=== PATIENT | female | born 1955 | race Caucasian/White ===

== ENCOUNTER 2022-03-17 09:06 | Emergency (ER) | payer MEDICARE, SELFPAY ==
--- NOTE | ~2022-03-17 | XR_ITS ---
EXAMINATION: XR thoracic spine 3V DATE: 03/17/2022 10:47 INDICATION: Back pain. Fall. TECHNIQUE: 3 views of thoracic spine were obtained. COMPARISON: None. FINDINGS: There is 12 degrees dextroscoliosis of thoracic spine. There is kyphosis of thoracic spine. Vertebral body heights are normal. There is mildly decreased disc height at multiple levels in upper thoracic spine. There are bridging endplate osteophytes at multiple levels in the spine, consistent with diffuse idiopathic skeletal hyperostosis (DISH). IMPRESSION: 1. Mild thoracic spondylosis. 2. Thoracic dextroscoliosis and kyphosis. 3. DISH. Reviewed, dictated and finalized at location A. END OPERATOR
--- NOTE | ~2022-03-17 | XR_ITS ---
EXAMINATION: XR cervical spine 4-5V DATE: 03/17/2022 10:47 INDICATION: Neck pain. Fall. TECHNIQUE: 5 views of cervical spine were obtained. COMPARISON: None. FINDINGS: There is 6 degrees levocurvature of cervical spine. Vertebral body heights and intervertebr al disc heights are normal. There are endplate osteophytes at multiple levels including bulky anterio r osteophytes at C3-C4. The facet joints are unremarkable. No central canal stenosis or prevertebral soft tissue swelling. IMPRESSION: 1. Mild cervical spondylosis. Reviewed, dictated and finalized at location A. EY RESEARCH TEACHER
--- NOTE | ~2022-03-17 | XR_ITS ---
EXAMINATION: XR ankle RT min 3V DATE: 03/17/2022 10:47 INDICATION: Right ankle pain. Fall. TECHNIQUE: 4 views of right ankle were obtained. COMPARISON: None. FINDINGS: There is an oblique fracture of distal fibula with medial aspect of the fracture line at th e level of the tibial plafond. The distal fracture fragment demonstrates 2 mm posterolateral displace ment. There is an osteochondral lesion of medial talar dome. There are enthesophytes at the posterior and plantar aspects of calcaneal tuberosity. Ankle soft tissue swelling is noted. IMPRESSION: 1. Oblique fracture of distal fibula. 2. Osteochondral lesion of medial talar dome. Reviewed, dictated and finalized at location A. S OR BARGES LOADER
[2022-03-17 09:19] VITALS: BP 156/70; PULSE 64; RESP 18; TEMP 36.4; O2SAT 100
--- NOTE | 2022-03-17 09:44 | ED.GENADULT ---
HPI - General Adult General Chief complaint: Unspecified Stated complaint: right ankle/back pain Time Seen by Provider: 03/17/22 09:44 Source: patient Mode of arrival: ambulatory Limitations: no limitations History of Present Illness HPI narrative: 66-year-old female patient presents to the [facility] with complaints of right ankle and back pain after slipping down 3 stairs this morning. Patient denies hitting her head or loss of consciousness. Patient states she had socks on and states she was taking the dog outside and slipped down 3 tile stairs. Patient complaining of right ankle pain and some mid back pain. Patient states she does have a little bit of neck pain but mostly on the lateral side of the neck not center. Patient denies any numbness or tingling down the bilateral legs or arms. Denies any loss of bowel or bladder control Related Data Home Medications Medication Instructions Recorded Confirmed amlodipine 5 mg tablet mg 03/17/22 ezetimibe 10 mg tablet mg 03/17/22 fenofibrate 54 mg tablet mg 03/17/22 hydrochlorothiazide 50 mg tablet mg 03/17/22 levothyroxine 175 mcg tablet mcg 03/17/22 metoprolol succinate 50 mg mg PO 03/17/22 tablet,extended release 24 hr Allergies Allergy/AdvReac Type Severity Reaction Status Date / Time No Known Allergies Allergy Verified 03/17/22 10:14 Review of Systems Review of Systems: CONSTITUTIONAL: Denies fever, chills, or sweats. EYES: Denies visual changes, redness, or discharge. ENT: Denies rhinorrhea, congestion, sore throat, or otalgia. CARDIOVASCULAR: Denies chest pain, palpitations, or edema. RESPIRATORY: Denies cough or dyspnea. GASTROINTESTINAL: Denies abdominal pain, nausea, vomiting, or diarrhea. GENITOURINARY: Denies dysuria or hematuria. SKIN: Denies rash or itching. MUSCULOSKELETAL: Denies back pain, joint pain, or myalgia. Positive right ankle pain and mid back pain status post fall NEUROLOGIC: Denies headache, numbness, or weakness. PSYCHIATRIC: Denies anxiety or depression. PMFSH Comments At the time of my signature I agree with nursing past medical history, surgical, social, and family history. There is no relevant family history pertinent to the presenting complaint. Exam Narrative: GENERAL: Well-appearing, well-nourished, and in no acute distress. HEAD: Normocephalic, atraumatic. EYES: PERRLA and EOMI. ENT: Nares clear, no rhinorrhea or epistaxis. Mucous membranes moist. NECK: Supple. No lymphadenopathy CHEST: Clear to auscultation. No respiratory distress. HEART: Regular rate and rhythm. No murmur heard. Normal peripheral pulses. ABDOMEN: Soft, nontender, nondistended, normal active bowel sounds. EXTREMITIES: Patient is able to bear weight and ambulate with pain to right ankle. The R ankle is with obvious asymmetry when compared to the L ankle. Patient has limited flex/extend, patient able to invert/talat. No obvious surface trauma, ecchymosis, positive soft tissue swelling to the right ankle. Bony tenderness to palpation over the right lateral malleolus. Anterior talofibular ligament, posterior talofibular ligament, calcaneofibular ligament nontender and without swelling. No tenderness or deformity of the midfoot or over the proximal fifth metatarsal. Good DP and posterior tibial pulses and sensation to light touch normal. Talar tilt test is negative for ligament laxity to valgus or vargus stress. Negative anterior draw. Peroneal nerve is intact with strong eversion and plantar flexion. SKIN: Warm, dry, no rash. NEURO: No focal deficits. Alert and oriented x3. Course Course Level of Care: Express Care Visit Vital Signs Vital signs: Vital Signs Temperature 36.4 C L 03/17/22 09:19 Pulse Rate 64 03/17/22 09:19 Respiratory Rate 18 03/17/22 09:19 Blood Pressure 156/70 H 03/17/22 09:19 Pulse Oximetry 100 03/17/22 09:19 Oxygen Delivery Room Air 03/17/22 09:19 Temperature 36.4 C L 03/17/22 09:19 Pulse Rate 64
== END 2022-03-17 11:40 | disposition home or self-care (01) ==
PROVIDERS: Emergency Provider Nurse Practitioner Family; PCP Family Medicine
DX: S82.831A Other fracture of upper and lower end of right fibula, initial encounter for closed fracture (principal); W10.9XXA Fall (on) (from) unspecified stairs and steps, initial encounter; M54.2 Cervicalgia; M54.6 Pain in thoracic spine; E78.00 Pure hypercholesterolemia, unspecified; I10 Essential (primary) hypertension; E03.9 Hypothyroidism, unspecified
CPT/HCPCS: 29515; 72050; 72072; 73610; 99204; G0463

== ENCOUNTER 2022-05-02 12:45 | Outpatient (CLI) | payer MEDICARE, SELFPAY ==
--- NOTE | ~2022-05-02 | XR_ITS ---
EXAM: XR ankle RT min 3V DATE: 05/02/2022 13:12 HISTORY: S82.839A FOLLOW UP FRACTURE ON 03/17/22 . COMPARISON: 03/17/2022. FINDINGS: Decreased mineralization. Early evolving healing changes in the distal right fibular fract ure, with minimal residual displacement. No acute fracture or dislocation. No lytic or blastic lesion . Stable appearing medial talar osteochondral lesion. Mild degenerative changes in the tibiotalar jack nt. Achilles and plantar enthesopathy. No erosion or periosteal change. Soft tissues within normal li mits. IMPRESSION: Healing changes noted distal right fibular fracture. Reviewed, dictated and finalized at location K. ULAR TECHNICIAN
== END 2022-05-02 12:46 | disposition home or self-care (01) ==
PROVIDERS: Visit Provider Orthopaedic Surgery
DX: S82.831D Other fracture of upper and lower end of right fibula, subsequent encounter for closed fracture with routine healing (principal); X58.XXXD Exposure to other specified factors, subsequent encounter
CPT/HCPCS: 73610

== ENCOUNTER 2022-07-28 14:13 | Emergency (ER) | payer MEDICARE, SELFPAY ==
--- NOTE | ~2022-07-28 | XR_ITS ---
EXAM: XR knee LT min 4V DATE: 07/28/2022 14:41 HISTORY: TWISTED KNEE, SWELLING AND PAIN . COMPARISON: None available. FINDINGS: Decreased mineralization. No fracture or dislocation. No lytic or blastic lesion. Mild ost eoarthritis. Quadriceps enthesopathy. No erosion or periosteal change. Soft tissues within normal gomes its. IMPRESSION: No acute osseous finding in the left knee. Reviewed, dictated and finalized at location K.
[2022-07-28 14:21] VITALS: BP 160/71; PULSE 64; RESP 20; TEMP 36.6; O2SAT 99
--- NOTE | 2022-07-28 14:21 | ED.LOWEXIN ---
HPI - Extremity Injury (Lower) General Chief Complaint: Extremity Injury, Lower Stated Complaint: left knee injury Time Seen by Provider: 07/28/22 14:21 Source: patient Mode of arrival: ambulatory Limitations: no limitations History of Present Illness HPI Narrative: 67 y/o female presented for c/o left knee pain after injury 2 or 3 days ago. States she twisted the knee when she stepped into a hole while walking her dog. Denies falling. Reports pain gets up to 10/10, crying on her way to clinic. Taking ibuprofen and Tylenol with out change. Using andreas wrap and cane. Pain worse when walking. Cannot tolerate touching the lateral aspect of the knee, also pain with straightening the knee. Denies numbness, tingling, or weakness of the extremity. Was seen at [facility] and was told D-dimer was negative. Related Data Home Medications Medication Instructions Recorded Confirmed amlodipine 5 mg tablet mg 03/17/22 05/24/22 ezetimibe 10 mg tablet mg 03/17/22 05/24/22 fenofibrate 54 mg tablet mg 03/17/22 05/24/22 hydrochlorothiazide 50 mg tablet mg 03/17/22 05/24/22 levothyroxine 175 mcg tablet mcg 03/17/22 05/24/22 metoprolol succinate 50 mg mg PO 03/17/22 05/24/22 tablet,extended release 24 hr Allergies Allergy/AdvReac Type Severity Reaction Status Date / Time bee venom protein (honey bee) Allergy Unknown Unknown Verified 07/28/22 14:22 Review of Systems Review of Systems: CONSTITUTIONAL: Denies body aches, fever, chills EYES: Denies visual changes ENT: Denies rhinorrhea, congestion CARDIOVASCULAR: Denies chest pain, palpitations, or edema. RESPIRATORY: Denies cough or dyspnea. SKIN: Denies rash, itching, or wounds. MUSCULOSKELETAL: Reports left knee pain NEUROLOGIC: Denies headache, numbness, tingling, or weakness. All systems reviewed & are unremarkable except as noted in HPI and below PMFSH Past Medical History Medical History History of cardiac disorder (~2008) Stent Placement History of stress test Hyperlipidemia Hypertension Surgical History Surgical History History of hysterectomy (~1994) Family History Family History Mother Cancer Arthritis Cerebrovascular accident Father Arthritis Heart disease Diabetes mellitus Social History Social History Smoking status: Unknown if ever smoked Alcohol intake: never Lack of Transportation: No Lack of Food: Never True Current Housing: I Have Housing Concerned About Future Housing: No Difficulty Paying Gas/Electric Bills: No Difficulty Paying for Meds: No Currently Unemployed: No Education: High School Diploma/GED Difficulty w/ Childcare or Family Care: No Comments At time of signature, I have reviewed and agree with nursing past medical, surgical, social and family history unless otherwise noted. Please see nursing chart for further information. There is no relevant family history pertinent to the presenting complaint Exam Narrative: GENERAL: Appears in pain, in no acute distress. HEAD: Normocephalic, atraumatic. EYES: conjunctivae clear NECK: Supple. CHEST: Speaks in full sentences. No respiratory distress. HEART: Regular rate and rhythm. Normal and equal peripheral pulses. EXTREMITIES: LLE has normal strength and sensation, full range of motion with flexion/extension/rotation at knee but endorses pain with movement or palpation of lateral aspect of the knee; also tender posteriorly and medially. Moderate swelling. No ecchymosis, No open wounds, skin tenting, or obvious deformity; alignment normal, pulse palpable and equal bilaterally, skin warm, dry, pink. Capillary refill less than 3 seconds. Gait slow, limp. SKIN: Warm, dry, no rash. NEURO: Alert and oriented x3. PSYCH: Normal mood and affect
[2022-07-28 14:23] VITALS: BP 160/71; PULSE 64; RESP 20; TEMP 36.6; O2SAT 99
== END 2022-07-28 15:07 | disposition home or self-care (01) ==
PROVIDERS: Emergency Provider Nurse Practitioner Family
DX: M25.562 Pain in left knee (principal); E78.5 Hyperlipidemia, unspecified; I10 Essential (primary) hypertension; Z95.5 Presence of coronary angioplasty implant and graft
CPT/HCPCS: 73564; 99213; G0463; L1830